=== PATIENT | female | born 1995 | race Hispanic/Latino ===

== ENCOUNTER 2021-11-30 22:05 | Emergency (ER) | payer OTHER ==
[2021-11-30 22:14] VITALS: BP 146/76
[2021-11-30] MEDS ORDERED: SYNTHROID25 MCG PO (22:48)
[2021-11-30 23:04] LABS: HEMATOCRIT 37.3 % (37.0-47.0); HEMOGLOBIN 11.3 g/dl (12.0-16.0); IMMATURE GRANULOCYTES 0.3 % (0.0-5.0); MEAN CELL VOLUME 71.2 fL CALC (80.0-100.0); MEAN CORPUSCULAR HGB 21.6 pG CALC (26.0-32.0); MEAN CORPUSCULAR HGB CONC 30.3 g/dL CAL (32.0-36.0); NEUT# 8.51 thou/uL (2.00-7.15); RED BLOOD COUNT 5.24 mill/uL (4.20-5.60); RED CELL DISTRI WIDTH 18.7 % (11.5-15.5)
[2021-11-30 23:10] LABS: URINE BILIRUBIN - DIPSTICK NEGATIVE (NEGATIVE); URINE BLOOD DIPSTICK LARGE (NEGATIVE); URINE COLOR RED; URINE GLUCOSE - DIPSTICK NEGATIVE (NEGATIVE); URINE KETONE TRACE mg/dL (NEGATIVE); URINE LEUK ESTERASE NEGATIVE (NEGATIVE); URINE PROTEIN - DIPSTICK 30 mg/dL (NEG-TRACE); URINE SPECIFIC GRAVITY 1.025; URINE UROBILINOGEN - DIPSTICK 0.2 E.U./dL (0.2)
[2021-11-30 23:19] LABS: ALBUMIN 3.9 g/dL (3.2-5.0); ALKALINE PHOSPHATASE 144 u/l (38-126); ANION GAP 10 (6-22 (CALC)); BILIRUBIN, TOTAL 0.2 mg/dL (0.0-1.4); BUN 12 mg/dL (7-17); BUN/CREATININE RATIO 19 (12-20 (CALC)); CARBON DIOXIDE 29 mmol/l (22-30); CHLORIDE 103 mmol/l (95-108); CREATININE 0.7 mg/dL (0.5-1.0); GFR > 60 ML/MIN (>=60 (CALC)); GFR FOR AFR.AMER. > 60 ML/MIN (>=60 (CALC)); POTASSIUM 3.7 mmol/l (3.5-5.1); SGOT/AST 27 u/l (14-36); SODIUM 139 mmol/l (137-146); TOTAL PROTEIN 8.1 g/dL (6.3-8.2)
[2021-11-30 23:25] LABS: URINE NITRITE - DIPSTICK NEGATIVE (Negative)
[2021-11-30 23:26] LABS: URINE RBC 50-100 RBC/hpf (0-5); URINE SQUAMOUS EPITHELIAL CELL FEW EPI/hpf (0-FEW); URINE WBC 0-2 WBC/hpf (0-5)
[2021-11-30 23:31] VITALS: BP 122/64
[2021-12-01] MEDS ORDERED: LEVOTHYROXIN50 MCG PO (00:09)
[2021-12-01] MEDS ORDERED: PROVERA10 MG PO (00:09)
[2021-12-01 00:17] VITALS: BP 122/64
== END 2021-12-01 00:24 | disposition home or self-care (01) | DRG 761 ==
LOC: ED 22:05
PROVIDERS: Family Medicine
DX: N92.0 Excessive and frequent menstruation with regular cycle (principal); E03.9 Hypothyroidism, unspecified

== ENCOUNTER 2022-05-19 13:29 | Emergency (ER) | payer SELFPAY ==
[~2022-05-19 13:29] MED LIST: LEVOTHYROXIN50 MCG PO; PROVERA10 MG PO; SYNTHROID25 MCG PO
[2022-05-19 15:33] VITALS: BP 162/66
[2022-05-19 16:00] VITALS: BP 107/58
[2022-05-19 16:30] VITALS: BP 109/53
[2022-05-19] MEDS ORDERED: CYCLOBENZAPRINE10 MG PO (18:22)
[2022-05-19] MEDS ORDERED: NAPROXEN500 MG PO (18:22)
[2022-05-19 18:30] VITALS: BP 112/65
[2022-05-19 18:31] VITALS: BP 112/65
== END 2022-05-19 18:35 | disposition home or self-care (01) | DRG 552 ==
LOC: ED 13:29
DX: M54.16 Radiculopathy, lumbar region (principal); E66.01 Morbid (severe) obesity due to excess calories